=== PATIENT | male | born 1955 | race Caucasian/White ===

== ENCOUNTER 2021-10-20 10:47 | Emergency (ER) | payer BC ==
[2021-10-20 11:15] VITALS: BP 145/79
--- NOTE | 2021-10-20 11:41 | ED Physician Documentation ---
History of Present Illness - Stated complaint Stated Complaint: THROAT PX,SOUGH,CONGESTION - Chief complaint Chief Complaint: Heent - Additonal information Additional information: 66-year-old male presents the emergency department for about 2 weeks of congestion and cough that has gotten progressively worse over the last 5 days and now has dysphonia and a sore throat. Patient feels that the sinus congestion and pressure is getting worse. Over the last few weeks he has intermittently tried saline rinses as well as Sudafed with little relief. Reports that his was sick with similar though she improved quickly. 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 He does report some night sweats but no weight loss. Fully vaccinated for COVID-19. Review of Systems Constitutional: reports: Fatigue, Sweats. denies: Fever, Chills Eyes: reports: Reviewed and negative Ears: reports: Reviewed and negative Nose: reports: Rhinorrhea / runny nose, Congestion, Sinus pressure / pain Throat: reports: Sore throat Cardiac: denies: Chest pain / pressure, Palpitations, Pedal edema, Calf pain Respiratory: reports: Cough. denies: Dyspnea GI: reports: Reviewed and negative : reports: Reviewed and negative Skin: reports: Reviewed and negative Musculoskeletal: reports: Reviewed and negative PD PAST MEDICAL HISTORY - Present Medications Home Medications: Ambulatory Orders Medication Instructions Recorded Confirmed Albuterol Sulf [Ventolin Hfa 1 - 2 puffs INH Q4HR PRN #1 inhaler 10/20/21 Inhaler] Amox/Clav 875/125 [Augmentin] 1 each PO Q12H #20 tablet 10/20/21 Benzonatate [Tessalon] 200 mg PO TID PRN #20 cap 10/20/21 - Allergies Allergies/Adverse Reactions: Allergies Allergy/AdvReac Type Severity Reaction Status Date / Time No Known Drug Allergies Allergy Verified 10/20/21 11:15 PD ED PE EXPANDED - HEENT HEENT: Atraumatic, PERRL, EOMI, Moist mucous membranes, Pharynx normal. No: Pharyngeal erythema, Swollen tonsils, Tonsillar exudate - Neck Neck: Supple w/out meningeal sx, Adenopathy. No: Thyroid enlarged / mass, No tenderness, Soft tissue TTP - Cardiac Cardiac: Regular Rate, Radial strong equal, Pedal strong equal, Cap refill < 2 sec, Other (port palpated in the right chest). No: Murmur Present - Respiratory Respiratory: Clear to ausultation diane. No: Distress, Labored - Abdomen Abdomen: Normal Bowel sounds. No: Tender to palpation - Derm Derm: Normal color, Warm and dry. No: Rash Results - Vitals Vitals: Vital Signs - 24 hr 10/20/21 10/20/21 11:11 12:33 Temperature 36.6 C Heart Rate 96 74 Respiratory 15 18 Rate Blood Pressure 145/79 H O2 Saturation 98 Oxygen O2 Source Room air - Labs Labs: Laboratory Tests 10/20/21 10/20/21 10/20/21 11:37 11:37 11:46 WBC 12.0 H RBC 4.41 L Hgb 13.8 L Hct 41.6 L MCV 94.3 H MCH 31.3 H MCHC 33.2 RDW 12.3 Plt Count 197 MPV 9.2 Neut # (Auto) 9.8 H Lymph # (Auto) 1.0 L [place] # (Auto) 1.1 H Eos # (Auto) 0.2 Baso # (Auto) 0.0 Absolute Nucleated RBC 0.00 Nucleated RBC % 0.0 Sodium Potassium Chloride Carbon Dioxide Anion Gap BUN Creatinine Estimated GFR (MDRD) Glucose Calcium Total Bilirubin AST ALT Alkaline Phosphatase Total Protein Albumin Globulin Albumin/Globulin Ratio Lipase Nasal Adenovirus (PCR) NOT DETECTED Nasal B. parapertussis DNA (PCR) NOT DETECTED Nasal Coronavir 229E PCR NOT DETECTED Nasal Coronavir HKU1 PCR NOT DETECTED Nasal Coronavir NL63 PCR NOT DETECTED Nasal Coronavir OC43 PCR NOT DETECTED Nasal Enterovir/Rhinovir PCR NOT DETECTED Nasal Influenza B PCR NOT DETECTED Nasal Influenza A PCR NOT DETECTED Nasal Parainfluen 1 PCR NOT DETECTED Nasal Parainfluen 2 PCR NOT DETECTED Nasal Parainfluen 3 PCR NOT DETECTED Nasal Parainfluen 4 PCR NOT DETECTED Nasal RSV (PCR) NOT DETECTED Nasal B.pertussis DNA PCR NOT DETECTED Nasal C.pneumoniae (PCR) NOT DETECTED Loi Human Metapneumo PCR NOT DETECTED Nasal M.pneumoniae (PCR) NOT DETECTED Nasal SARS-CoV-2 (PCR) NOT DETECTED Group A Strep Rapid Negative 10/20/21 11:46 WBC RBC Hgb Hct MCV MCH MCHC RDW Plt Count MPV Neut # (Auto) Lymph # (Auto) [place] # (Auto) Eos # (Auto) Baso # (Auto) Absolute Nucleated RBC Nucleated RBC % Sodium 139 Potassium 3.8 Chloride 100 L Carbon Dioxide 28 Anion Gap 11.0 BUN 14 Creatinine 0.9 Estimated GFR (MDRD) 84 L Glucose 107 H Calcium 9.8 Total Bilirubin 1.1 H AST 19 ALT 20 Alkaline Phosphatase 48 Total Protein 7.4 Albumin 4.2 Globulin 3.2 Albumin/Globulin Ratio 1.3 Lipase 25 Nasal Adenovirus (PCR) Nasal B. parapertussis DNA (PCR) Nasal Coronavir 229E PCR Nasal Coronavir HKU1 PCR Nasal Coronavir NL63 PCR Nasal Coronavir OC43 PCR Nasal Enterovir/Rhinovir PCR Nasal Influenza B PCR Nasal Influenza A PCR Nasal Parainfluen 1 PCR Nasal Parainfluen 2 PCR Nasal Parainfluen 3 PCR Nasal Parainfluen 4 PCR Nasal RSV (PCR) Nasal B.pertussis DNA PCR Nasal C.pneumoniae (PCR) Loi Human Metapneumo PCR Nasal M.pneumoniae (PCR) Nasal SARS-CoV-2 (PCR) Group A Strep Rapid - Rads (name of study) CXR Radiology: Final report received (Low lung volumes without acute abnormality seen) PD MEDICAL DECISION MAKING - ED course Complexity details: reviewed results, re-evaluated patient, considered differential, d/w patient ED course: 66-year-old male presents emergency department with 2 weeks of nasal congestion runny nose sore throat and cough. However over the last 5 days it has gotten progressively worse. No fevers but he does endorse some night sweats. He does have a history of lymphoma and has been in remission for more than 1 year. He is scheduled to see his oncologist on Sunday. Today screening chest x-ray does not show a pneumonia. He is not hypoxic and is breathing easily on room air. Respiratory PCR is negative. Patient was given albuterol at the bedside with improvement in the severity of his cough. However given the 2 weeks of sinus congestion and pressure that has failed to resolve with nasal spray and Sudafed he will be discharged with a prescription for Augmentin in the treatment of sinusitis. Tessalon Perles and albuterol for the help with cough. Continue follow-up with his oncologist and primary care provider. Otherwise emergent return precautions were discussed. Departure - Departure Disposition: Home, Self Care Clinical Impression: Cough Sinusitis Qualifiers: Sinusitis location: unspecified location Chronicity: acute Recurrence: non- recurrent Qualified Code(s): J01.90 - Acute sinusitis, unspecified Condition: Stable Record reviewed to determine appropriate education?: Yes Instructions: ED Sinusitis Abx Tx Follow-Up: Jomar Radford MD [Primary Care Provider] - Prescriptions: Albuterol Sulf [Ventolin Hfa Inhaler] 1 - 2 puffs INH Q4HR PRN #1 inhaler PRN Reason: Shortness Of Air/Wheezing Amox/Clav 875/125 [Augmentin] 1 each PO Q12H #20 tablet Benzonatate [Tessalon] 200 mg PO TID PRN #20 cap PRN Reason: Cough Comments: Joe lettrell have you continue to do the saline rinses followed by the nasal steroid. I have sent a prescription for Augmentin to the [facility] in [place]. It can be filled tomorrow. I would also like you to use the albuterol to help with your cough as well as Tessalon Perles. Your screening labs today showed a white blood cell count of 12. This is common in upper respiratory infections but is not a sign of recurrence of lymphoma or leukemia. The chest x-ray did not show an obvious pneumonia. I think it is okay for you to continue follow-up with your oncologist on Sunday as already scheduled. If over the next few days you find that your cough and sinus congestion is not improving, you develop fevers, chest pain or shortness of air then please return immediately to the ER for second evaluation.
[2021-10-20 11:56] LABS: RAPID STREP SCREEN Negative (Negative)
[2021-10-20 11:56] LABS: BASOPHILS % (AUTO) 0.3 %; EOSINOPHILS # (AUTO) 0.2 10^3/uL (0.0-0.7); EOSINOPHILS % (AUTO) 1.3 %; HCT - HEMATOCRIT 41.6 % (42.0-52.0); HGB - HEMOGLOBIN 13.8 g/dL (14.0-18.0); LYMPHOCYTES % (AUTO) 8.1 %; MEAN CORPUSCULAR HEMOGLOBIN 31.3 pg (27.0-31.0); MEAN CORPUSCULAR HGB CONC 33.2 g/dL (32.0-36.0); MEAN CORPUSCULAR VOLUME 94.3 fL (80.0-94.0); MEAN PLATELET VOLUME 9.2 fL (7.4-11.4); MONOCYTES # (AUTO) 1.1 10^3/uL (0.0-1.0); NEUTROPHILS # (AUTO) 9.8 10^3/uL (1.5-6.6); NEUTROPHILS % (AUTO) 81.1 %; PLT - PLATELET COUNT 197 10^3/uL (130-450); RED BLOOD COUNT 4.41 10^6/uL (4.70-6.10); RED CELL DISTRIBUTION WIDTH 12.3 % (12.0-15.0)
--- NOTE | 2021-10-20 11:58 | XRAY Report ---
PROCEDURE: Chest 1 View X-Ray INDICATIONS: chest pain TECHNIQUE: One view of the chest was acquired. COMPARISON: None FINDINGS: Surgical changes and devices: A right-sided chest port is seen, with the tip overlying the mid aspect of the superior vena cava. Lungs and pleura: An incomplete inspiratory result is noted, with low lung volumes and crowding of t he vascular markings. No focal infiltrates are seen. No large pneumothorax or large pleural effusion can be seen. Mediastinum: Mediastinal contours appear normal. Heart size is normal. Bones and chest wall: No suspicious bony lesions. Age-appropriate degenerative changes are seen. Overlying soft tissues appear unremarkable. IMPRESSION: Low lung volumes, without an acute abnormality seen. Postoperative and degenerative changes are seen. Reviewed by: Flip Drake MD on 10/20/2021 10:56 AM [facility] Approved by: Flip Drake MD on 10/20/2021 10:56 AM [facility] Station ID: [id number]
[2021-10-20 12:06] LABS: ALBUMIN 4.2 g/dL (3.2-5.5); ALBUMIN/GLOBULIN RATIO 1.3 (1.0-2.2); BILIRUBIN,TOTAL 1.1 mg/dL (0.2-1.0); CALCIUM 9.8 mg/dL (8.5-10.3); CREATININE 0.9 mg/dL (0.6-1.2); POTASSIUM 3.8 mmol/L (3.5-5.0); TOTAL PROTEIN 7.4 g/dL (6.7-8.2)
[2021-10-20] MEDS: ALBUTEROL 1 PUFF INH STA (12:32)
[2021-10-20 12:38] LABS: B. PARAPERTUSSIS- RESP PCR PAN NOT DETECTED; B. PERTUSSIS- RESP PCR PANEL NOT DETECTED; C. PNEUMONIAE- RESP PCR PANEL NOT DETECTED; CORONAVIRUS 229E-RESP PCR NOT DETECTED; CORONAVIRUS HKU1-RESP PCR NOT DETECTED; CORONAVIRUS NL63-RESP PCR NOT DETECTED; CORONAVIRUS OC43-RESP PCR NOT DETECTED; HUMAN METAPNEUMOVIRUS NOT DETECTED; INFLUENZA A- RESP PCR PANEL NOT DETECTED; INFLUENZA B - RESP PCR PANEL NOT DETECTED; M. PNEUMONIAE- RESP PCR PANEL NOT DETECTED; PARAINFLUENZA VIRUS 1 NOT DETECTED; PARAINFLUENZA VIRUS 2 NOT DETECTED; PARAINFLUENZA VIRUS 3 NOT DETECTED; PARAINFLUENZA VIRUS 4 NOT DETECTED; RHINOVIRUS/ENTEROVIRUS NOT DETECTED; RSV- RESP PCR PANEL NOT DETECTED; SARS-CoV-2 -RESP PCR PANEL NOT DETECTED
== END 2021-10-20 13:22 | disposition home or self-care (01) ==
LOC: ED 10:47
DX: J01.90 Acute sinusitis, unspecified (principal); R05.9 Cough, unspecified; Z20.822 Contact with and (suspected) exposure to COVID-19
CPT/HCPCS: 0202U; 36415; 71045; 80053; 83690; 85025; 87070; 87430; 94640; 99283; 99284